=== PATIENT | female | born 1970 | race Caucasian/White ===

== ENCOUNTER → 2019-03-02 | Day surgery (SDC) | payer OTHER ==
[~2019-03-02] MED LIST: AMBIEN10 MG PO; BYSTOLIC5 MG PO; FENTANYL CITRATE/PF 100MCG/2 ML INJ ONE; LIDOCAINE HCL 2% LOCAL INJ 5 ML SDV VIAL INJ ONE; MIDAZOLAM HCL 2 MG/2 ML VIAL ONE; NEXIUM40 MG PO; PROPOFOL IV EMULSION 10 MG/ML 50 ML VIAL ONE; RANITIDINE HCL300 MG PO
[2019-03-02 09:04] VITALS: BP 139/79
== END | disposition home or self-care (01) ==
LOC: OR 07:13
PROVIDERS: ATTEND Internal Medicine Gastroenterology
DX: Z12.11 Encounter for screening for malignant neoplasm of colon (principal); K63.5 Polyp of colon; K64.4 Residual hemorrhoidal skin tags; K29.70 Gastritis, unspecified, without bleeding; K21.9 Gastro-esophageal reflux disease without esophagitis; I10 Essential (primary) hypertension; F17.200 Nicotine dependence, unspecified, uncomplicated; Z88.0 Allergy status to penicillin; Z01.810 Encounter for preprocedural cardiovascular examination
CPT/HCPCS: 45380; 81025; 88305; 93005; J2001; J2250; J2704; J3010